=== PATIENT | female | born 1975 | race American Indian/Alaskan Native ===

== ENCOUNTER 2016-05-20 09:57 | Outpatient (CLI) | payer BC ==
[2016-05-20 10:21] VITALS: BP 135/82
== END 2016-05-20 11:35 | disposition home or self-care (01) ==
LOC: TRG 09:57
PROVIDERS: ATTEND Obstetrics & Gynecology
DX: Z34.90 Encounter for supervision of normal pregnancy, unspecified, unspecified trimester (principal); Z3A.00 Weeks of gestation of pregnancy not specified
CPT/HCPCS: 59025